=== PATIENT | male | born 1955 | race Caucasian/White ===

== ENCOUNTER 2017-01-08 10:15 | Emergency (ER) | payer OTHER ==
[2017-01-08 10:21] VITALS: BP 109/80; PULSE 59; RESP 20; TEMP 97.5; O2SAT 95
--- NOTE | 2017-01-08 10:54 | EDPHY ---
H & P Time Seen by Provider: 01/08/17 10:37 HPI/ROS: CHIEF COMPLAINT: Leg flashes HISTORY OF PRESENT ILLNESS: The patient is a 61-year-old male with previous vitreous detachment who presents emergency department seeing flashing lights in his eyes last night. The patient states he was getting up from the story pole in sit down quickly. Upon hitting his bottom on the pavement he saw flashes in the left lateral field of his left eye. Flashes of now resolved. He has no visual defects. He denies headache. No neck pain. No focal neurologic deficits. Patient states the symptoms are similar to a vitreal detachment that he had in his right eye. Patient denies hypertension, high cholesterol, diabetes. REVIEW OF SYSTEMS: My complete review of systems is negative except as mentioned in the HPI. Past Medical/Surgical History: Previous vitreal detachment, umbilical hernia, left leg fracture Social history: The patient does not smoke. Smoking Status: Never smoked Physical Exam: Vitals noted GENERAL: Well-appearing, in no acute distress, alert. Visual acuity: Noted. Eyelids: Normal inspection, everted for exam. Conjunctiva and sclera: Normal inspection. No foreign material. No subconjunctival hemorrhage. No exudate. Not injected. Corneas: Normal inspection. EOMs: Intact. Pupils: PERRL, normal accommodation. Anterior chambers: Normal inspection. No hyphema. No cells or flare. Posterior segments: Normal funduscopic exam Constitutional: Initial Vital Signs Temperature (C) 36.4 C 01/08/17 10:18 Heart Rate 59 L 01/08/17 10:18 Respiratory Rate 20 01/08/17 10:18 Blood Pressure 109/80 01/08/17 10:18 O2 Sat (%) 95 01/08/17 10:18 O2 Delivery Mode Room Air Allergies/Adverse Reactions: No Known Allergies Allergy (Unverified 01/08/17 10:17) Home Medications: Medication Instructions Recorded NK [No Known Home Meds] 01/08/17 Medical Decision Making ED Course/Re-evaluation: I discussed the results with the patient. He had a normal funduscopic exam. He was given close follow-up with Ophthalmology. He will call their office tomorrow. He was given warnings prior to leaving. He felt comfortable to plan. Differential Diagnosis: My differential includes but is not limited to retinal detachment, vitreal hemorrhage, vitreal detachment, floaters, dissection, aneurysm, CRAO, CRVO Departure - Departure Disposition: Home, Routine, Self-Care Clinical Impression: Floaters in visual field Qualifiers: Laterality: left Qualified Code(s): H43.392 - Other vitreous opacities, left eye Condition: Good Instructions: Visual Floaters (ED) Referrals: Jessica Dugan MD [Medical Doctor] - 1-2 days without fail Nasim Do MD [Medical Doctor] - As per Instructions
== END 2017-01-08 12:09 | disposition home or self-care (01) ==
DX: H43.392 Other vitreous opacities, left eye (principal)

== ENCOUNTER → 2018-01-31 | Outpatient (CLI) | payer OTHER | LOC: FIMAGING 12:30 | PROVIDERS: ATTEND Internal Medicine | DX: N63.20 Unspecified lump in the left breast, unspecified quadrant (principal); Z80.3 Family history of malignant neoplasm of breast ==

== ENCOUNTER → 2018-02-20 | Outpatient (CLI) | payer OTHER | LOC: FIMAGING 07:21 | PROVIDERS: ATTEND Surgery | DX: D05.12 Intraductal carcinoma in situ of left breast (principal) | CPT/HCPCS: 38792; A9520 ==

== ENCOUNTER 2018-07-30 13:08 | Day surgery (SDC) | payer OTHER ==
[2018-07-30] MEDS ORDERED: LIDOCAINE 2% 5 ML SDV ONE (15:07)
[2018-07-30] MEDS ORDERED: MIDAZOLAM 2 MG/2 ML VIAL ONE (15:07)
[2018-07-30] MEDS ORDERED: PROPOFOL/EMULSION 500 MG/50 ML BOTTLE IV ONE (15:07)
--- NOTE | 2018-07-30 15:42 | PDGENHP ---
History & Physical Chief Complaint: BRCA/fmhx polyps History of Present Illness: 63 year old male with a history of breast cancer, BRCA presents for colonoscopy and pancreatic surveillance Pertinent Past, Social, Family History: PMHx; breast cabcer. FaMHx; bro- polyps Relevant Physical Exam: HEENT: anicteric. CV: RRR +s1s2. Lungs:CTAB. Abd: soft, nt, + bs Cardiorespiratory Assessment: ASA 2
--- NOTE | 2018-07-30 15:45 | PDANEPAE ---
ANE History of Present Illness egd, eus, colonoscopy ANE Past Medical History - Cardiovascular History Hx Hypertension: No Hx Arrhythmias: No Hx Chest Pain: No Hx Coronary Artery / Peripheral Vascular Disease: No Hx CHF / Valvular Disease: No Hx Palpitations: No Cardiovascular History Comment: was told he had a shorter conduction pathway years ago but no treatment, symptoms, or recent follow up - Pulmonary History Hx COPD: No Hx Asthma/Reactive Airway Disease: No Hx Recent Upper Respiratory Infection: No Hx Oxygen in Use at Home: No Hx Sleep Apnea: No Sleep Apnea Screening Result - Last Documented: Negative - Neurologic History Hx Cerebrovascular Accident: No Hx Seizures: No Hx Dementia: No Neurologic History Comment: 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 has BRCA II mutation, at a higher risk for pancreatic CA - Congenital Disorder History Hx Congenital Disorders: No - GI History GERD: no Hx Gastrointestinal Disorders: Yes Gastrointestinal History Comment: colon polyps. - Other Health History Other Health History: wears glasses for reading. mild tinitus. has legion in left eye, hx of vitreous detachment. had an atypical mole excision from abdomen that needs additional margins removed - Chronic Pain History Chronic Pain: No - Surgical History Prior Surgeries: left mastectomy, 01/2018. inguinal hernia repair. left leg fx repair. colonoscopies ANE Review of Systems Review of Systems: - Exercise capacity Exercise capacity: >=4 METS METS (RN): 4 METS ANE Patient History - Allergies Allergies/Adverse Reactions: Sulfa (Sulfonamide Antibiotics) Allergy (Verified 07/27/18 11:19) - Home Medications Home medications: home medication list seen and reviewed Home Medications: Tamoxifen Citrate 07/27/18 [Last Taken 1 Day Ago ~07/29/18] Vitamin D3 07/27/18 [Last Taken 1 Day Ago ~07/29/18] - NPO status NPO Status: no food or drink >8 hours NPO Since - Liquids (Date): 07/29/18 NPO Since - Liquids (Time): 08:30 NPO Since - Solids (Date): 07/29/18 NPO Since - Solids (Time): 08:30 - Anes Hx Anes Hx: no prior problems - Smoking Hx Smoking Status: Never smoked - Family Anes Hx Family Hx Anesthesia Complications: none ANE Labs/Vital Signs - Vital Signs Blood Pressure: 111/69 Heart Rate: 60 Respiratory Rate: 20 O2 Sat (%): 97 Height: 170.18 cm Weight: 78.471 kg ANE Physical Exam - Airway Mallampati Score: Class 2 Mouth exam: normal dental/mouth exam - Pulmonary Pulmonary: no respiratory distress - Cardiovascular Cardiovascular: regular rate and rhythym - ASA Status ASA Status: II ANE Anesthesia Plan Anesthesia Plan: GA with mask, MAC
[2018-07-30] MEDS ORDERED: INDOMETHACIN 50 MG SUPP PR PRN (15:56)
[2018-07-30] MEDS ORDERED: NS 500 ML IV SCH (16:00)
[2018-07-30] MEDS ORDERED: ALBUTEROL 3 ML DEYVIAL IH PRN (16:04)
[2018-07-30] MEDS ORDERED: ONDANSETRON 4 MG/2 ML VIAL IVP PRN (16:04)
[2018-07-30] MEDS ORDERED: LR 500 ML IV PRN (16:04)
[2018-07-30] MEDS ORDERED: NALOXONE HCL 0.4 MG/ML INJ IVP PRN (16:04)
[2018-07-30] MEDS ORDERED: ePHEDrine SULFATE 25 MG/5 ML SYR ONE (16:27)
[2018-07-30] MEDS ORDERED: PROPOFOL 200 MG/20 ML VIAL ONE (16:37)
--- NOTE | 2018-07-30 17:04 | POSTANESTH ---
Post Anesthetic Evaluation Cardiovascular Status: Normal, Stable Respiratory Status: Normal, Stable Level of Consciousness/Mental Status: Can Participate in Eval Pain Control: Adequate, Prn Tx Ordered Nausea/Vomiting Control: Adequate, Prn Tx Ordered Complications Possibly Related to Anesthesia: None Noted
--- NOTE | 2018-07-30 17:27 | GIREPORT ---
[facility] Surgical Services - Endoscopy Department Patient Name: Je Antoine Procedure Date: 07/30/2018 3:42 PM Patient Type: Outpatient Attending MD/ ER Physician: Osmar Jones MD Procedure: Colonoscopy Indications: High risk colon cancer surveillance: Personal history of colonic polyps Patient Profile: 63 year old male with BRCA mutation, personal history of polyps present s for surveillance colonoscopy. Providers: Osmar Jones MD Medicines: Monitored Anesthesia Care Complications: No immediate complications. Estimated blood loss: Minimal. Description of Procedure: After obtaining informed consent, the scope was passed under direct vis ion. Throughout the procedure, the patient's blood pressure, pulse, and oxyg en saturations were monitored continuously. The Colonoscope with irrigatio n channel was introduced through the anus and advanced to the cecum, identified by appendiceal orifice and ileocecal valve. The colonoscopy was performed without difficulty. The patient tolerated the procedure well. The quality of the bowel preparation was good. The ileocecal valve, appendi ceal orifice, and rectum were photographed. Findings: The perianal and digital rectal examinations were normal. Pertinent negatives include no palpable rectal lesions. A 3 mm polyp was found in the transverse colon. The polyp was sessile. The polyp was removed with a cold biopsy forceps. Resection and retrieval w ere complete. A few diverticula were found in the sigmoid colon. Estimated Blood Loss: Estimated blood loss was minimal. Post Op Diagnosis: - One 3 mm polyp in the transverse colon, removed with a cold biopsy forceps. Resected and retrieved. - Diverticulosis in the sigmoid colon. Recommendation: - Discharge patient to home (with escort). - The signs and symptoms of potential delayed complications were discus sed with the patient. - Patient has a contact number available for emergencies. - Return to normal activities tomorrow. - Resume previous diet. - Continue present medications. - Repeat colonoscopy for surveillance dependent on pathology. - Await pathology results. - Thank you for allowing me to participate in the care of your patient. Attending Participation: I personally performed the entire procedure. Osmar Jones MD Osmar Jones MD 07/30/2018 5:27:21 PM This report has been signed electronicallyOsmar Jones MD Number of Addenda: 0 Note Initiated On: 07/30/2018 3:42 PM Total Procedure Duration Time 0 hours 23 minutes 21 seconds [email or web address]
--- NOTE | 2018-07-30 17:45 | GIREPORT ---
[facility] Surgical Services - Endoscopy Department Patient Name: Je Antoine Procedure Date: 07/30/2018 3:42 PM Patient Type: Outpatient Attending MD/ ER Physician: Osmar Jones MD Procedure: Upper EUS Indications: Surveillance for malignancy due to personal history of premalignant condition, Weight loss Patient Profile: 63 year old male presents for surveillance of pancreatic cancer due to a BRCA mutation as well as weight loss. Providers: Osmar Jones MD Medicines: Monitored Anesthesia Care Complications: No immediate complications. Estimated blood loss: Minimal. Description of Procedure: After obtaining informed consent, the endoscope was passed under direct vision. Throughout the procedure, the patient's blood pressure, pulse, and oxygen saturations were monitored continuously. The Endosonoscope was introduced through the mouth, and advanced to the second part of duoden um. The Endoscope was introduced through the mouth, and advanced to the sec ond part of duodenum. The upper EUS was accomplished without difficulty. Th e esophagus, stomach, and duodenum were visualized endosonographically. T he patient tolerated the procedure well. Findings: Endoscopic Finding : The Z-line was irregular. Biopsies were taken with a cold forceps for histology. A hiatal hernia was present. The examined duodenum was normal. Biopsies were taken with a cold force ps for histology. Endosonographic Finding : Pancreatic parenchymal abnormalities were noted in the entire pancreas. These consisted of hyperechoic foci. The pancreatic duct had a prominently branched endosonographic appearan ce and had hyperechoic travis in the entire pancreas. Pancreatic parenchymal abnormalities were noted in the entire pancreas. These consisted of lobularity. There was no sign of significant endosonographic abnormality in the com mon bile duct and in the gallbladder. There was no sign of significant endosonographic abnormality in the visualized portion of the liver. No masses were identified. No lymphadenopathy seen. Estimated Blood Loss: Estimated blood loss was minimal. Post Op Diagnosis: - Z-line irregular. Biopsied. - Hiatal hernia. - Normal examined duodenum. Biopsied. - Pancreatic parenchymal abnormalities consisting of hyperechoic foci w ere noted in the entire pancreas. - The pancreatic duct had a prominently branched endosonographic appear ance and had hyperechoic travis in the entire pancreas. - Pancreatic parenchymal abnormalities consisting of lobularity were no juancarlos in the entire pancreas. - There was no sign of significant pathology in the common bile duct an d in the gallbladder. - There was no evidence of significant pathology in the visualized port ion of the liver. - No obvious mass lesion seen. Recommendation: - Perform a colonoscopy today. - Await pathology results. - Repeat EUS in 2 years if oncology concurs. - Thank you for allowing me to participate in the care of your patient. Attending Participation: I personally performed the entire procedure. Osmar Jones MD Osmar Jones MD 07/30/2018 5:45:53 PM This report has been signed electronicallyOsmar Jones MD Number of Addenda: 0 Note Initiated On: 07/30/2018 3:42 PM [email or web address]
[2018-07-30 18:36] VITALS: BP 113/70
== END 2018-07-30 18:20 | disposition home or self-care (01) ==
LOC: FSGY 13:08
PROVIDERS: ATTEND Internal Medicine Gastroenterology
DX: Z12.11 Encounter for screening for malignant neoplasm of colon (principal); D12.3 Benign neoplasm of transverse colon; K86.9 Disease of pancreas, unspecified; K22.9 Disease of esophagus, unspecified; K44.9 Diaphragmatic hernia without obstruction or gangrene; K57.30 Diverticulosis of large intestine without perforation or abscess without bleeding; R63.4 Abnormal weight loss; Z85.3 Personal history of malignant neoplasm of breast; Z86.010 Personal history of colon polyps; Z83.71 Family history of colonic polyps; Z15.09 Genetic susceptibility to other malignant neoplasm; Z90.12 Acquired absence of left breast and nipple
CPT/HCPCS: J2250; J2704

== ENCOUNTER → 2018-10-01 | Outpatient (CLI) | payer OTHER | LOC: BMCIMAGING 09:54 | PROVIDERS: ATTEND Internal Medicine Hematology & Oncology | DX: Z13.820 Encounter for screening for osteoporosis (principal); M81.0 Age-related osteoporosis without current pathological fracture ==